=== PATIENT | female | born 1995 | race Two or more races ===

== ENCOUNTER → 2021-10-28 | Outpatient (CLI) | payer MEDICAID ==
--- NOTE | 2021-10-28 12:05 | REP ---
INDICATION: PRE EMPLOYMENT TB SCREENING COMPARISON: None. TECHNIQUE: PA/Lateral FINDINGS: Lungs: Clear, no infiltrate. Heart: Normal in size. Mediastinum: Mediastinal silhouette unremarkable. Pleural angles: Unremarkable.. Bones and soft tissues: Unremarkable. IMPRESSION: No acute pulmonary disease. <Electronically signed by Jurgen Sow > 10/28/21 1206
== END ==
LOC: M WUC 11:18
PROVIDERS: ATTEND Family Medicine Adult Medicine
DX: R76.11 Nonspecific reaction to tuberculin skin test without active tuberculosis (principal)

== ENCOUNTER → 2022-11-06 | Outpatient (REF) | payer MEDICAID, OTHER ==
[2022-11-06 18:01] LABS: BASO # 0.1 10^3/uL (0.0-0.2); BASO % 0.8 % (0.0-1.0); HEMOGLOBIN 14.2 g/dl (12.0-15.5); LYMPH % 19.5 % (24.0-44.0); MEAN CORPUSCULAR HGB CONC 33.8 g/dl (32.0-36.5); MEAN CORPUSCULAR VOLUME 91.7 fl (80.0-96.0); MONO # 0.6 10^3/uL (0.0-0.8); NEUTROPHILS # 7.6 10^3/uL (1.5-8.5); NEUTROPHILS % 73.5 % (36.0-66.0); PLATELET COUNT, AUTOMATED 384 10^3/uL (150-450); RED BLOOD COUNT 4.58 10^6/uL (4.00-5.40); WHITE BLOOD COUNT 10.3 10^3/uL (4.0-10.0)
[2022-11-06 18:11] LABS: ALBUMIN 3.9 G/DL (3.2-5.2); ALKALINE PHOSPHATASE 40 U/L (46-116); ALT/SGPT 13 U/L (7.0-40); AST/SGOT 19 U/L (<34); BILIRUBIN,TOTAL 0.4 MG/DL (0.3-1.2); BLOOD UREA NITROGEN 11 MG/DL (9-23); CALCIUM LEVEL 9.6 MG/DL (8.5-10.1); CARBON DIOXIDE LEVEL 22 MMOL/L (20-31); CHLORIDE LEVEL 105 MMOL/L (98-107); CHOLESTEROL LEVEL 151 MG/DL (<200); CREATININE FOR GFR 0.68 MG/DL (0.55-1.30); GLOMERULAR FILTRATION RATE > 60.0 (>60); GLUCOSE, FASTING 77 MG/DL (60-100); HDL CHOLESTEROL 65.5 MG/DL (>40); LDL CHOLESTEROL 73.3 MG/DL (<100); NON-HDL-C 86 MG/DL; SODIUM LEVEL 139 MMOL/L (136-145); TOTAL PROTEIN 7.4 G/DL (5.7-8.2); TRIGLYCERIDES LEVEL 61 MG/DL (<150)
[2022-11-06 18:15] LABS: THYROID STIMULATING HORMONE 1.314 uIU/ML (0.55-4.78); TOTAL 25(OH) VITAMIN D 34.9 NG/ML (20.0-100.0)
[2022-11-06 18:17] LABS: FREE T4 1.24 NG/DL (0.89-1.76)
[2022-11-07 08:04] LABS: HCG, SERUM QUANTITATIVE 16699.6 MIU/ML (<4.2)
== END ==
LOC: M LAB REF 17:25
PROVIDERS: ATTEND Nurse Practitioner Family
DX: Z13.228 Encounter for screening for other metabolic disorders (principal); N92.5 Other specified irregular menstruation

== ENCOUNTER 2022-11-07 21:34 | Emergency (ER) | payer MEDICAID ==
[~2022-11-07] VITALS: Ht 152.4 cm; Wt 45.5 kg
[2022-11-07 21:34] VITALS: BP 121/63
== END 2022-11-08 02:53 | disposition left against medical advice (07) ==
LOC: M ED 21:34
DX: Z53.21 Procedure and treatment not carried out due to patient leaving prior to being seen by health care provider (principal)

== ENCOUNTER → 2022-12-09 | Outpatient (REF) | payer OTHER, MEDICAID | LOC: M SFHCWAGY 10:02 | PROVIDERS: ATTEND Advanced Practice Midwife | DX: Z34.01 Encounter for supervision of normal first pregnancy, first trimester (principal) ==

== ENCOUNTER → 2022-12-24 | Outpatient (CLI) | payer MEDICAID, OTHER | LOC: M WHC 13:11 | PROVIDERS: ATTEND Advanced Practice Midwife | DX: Z34.01 Encounter for supervision of normal first pregnancy, first trimester (principal); Z3A.12 12 weeks gestation of pregnancy ==

== ENCOUNTER → 2023-01-07 | Outpatient (CLI) | payer OTHER ==
[2023-01-07 13:34] LABS: HEMATOCRIT 40.1 % (36.0-47.0); HEMOGLOBIN 13.9 g/dl (12.0-15.5); MEAN CORPUSCULAR HEMOGLOBIN 31.9 pg (27.0-33.0); MEAN CORPUSCULAR HGB CONC 34.7 g/dl (32.0-36.5); PLATELET COUNT, AUTOMATED 330 10^3/uL (150-450); RED BLOOD COUNT 4.36 10^6/uL (4.00-5.40)
[2023-01-07 16:06] LABS: GC DNA AMPLIFICATION NEGATIVE (NEGATIVE)
[2023-01-07 19:54] LABS: HIV 1&2 SCREEN CENTAUR NEGATIVE (NEGATIVE)
== END ==
LOC: M PLALAB 09:17
PROVIDERS: ATTEND Advanced Practice Midwife
DX: Z34.01 Encounter for supervision of normal first pregnancy, first trimester (principal)

== ENCOUNTER → 2023-02-10 | Outpatient (CLI) | payer OTHER | LOC: M WHC 14:22 | PROVIDERS: ATTEND Advanced Practice Midwife | DX: O32.1XX0 Maternal care for breech presentation, not applicable or unspecified (principal); Z36.89 Encounter for other specified antenatal screening; Z3A.19 19 weeks gestation of pregnancy ==

== ENCOUNTER → 2023-04-03 | Outpatient (CLI) | payer OTHER ==
[2023-04-03 15:03] LABS: HEMATOCRIT 36.4 % (36.0-47.0); HEMOGLOBIN 12.3 g/dl (12.0-15.5); MEAN CORPUSCULAR HEMOGLOBIN 32.5 pg (27.0-33.0); MEAN CORPUSCULAR HGB CONC 33.8 g/dl (32.0-36.5); PLATELET COUNT, AUTOMATED 303 10^3/uL (150-450); RED BLOOD COUNT 3.79 10^6/uL (4.00-5.40); WHITE BLOOD COUNT 16.6 10^3/uL (4.0-10.0)
[2023-04-03 16:55] LABS: GC DNA AMPLIFICATION NEGATIVE (NEGATIVE)
== END ==
LOC: M PLALAB 10:41
PROVIDERS: ATTEND Specialist
DX: Z34.02 Encounter for supervision of normal first pregnancy, second trimester (principal); Z36.89 Encounter for other specified antenatal screening; Z3A.00 Weeks of gestation of pregnancy not specified

== ENCOUNTER → 2023-06-08 | Outpatient (CLI) | payer OTHER | LOC: M WHC 09:44 | PROVIDERS: ATTEND Advanced Practice Midwife | DX: O26.849 Uterine size-date discrepancy, unspecified trimester (principal); Z3A.36 36 weeks gestation of pregnancy ==

== ENCOUNTER → 2023-10-05 | Outpatient (CLI) | payer OTHER | LOC: M SOG 15:59 | PROVIDERS: ATTEND Physician Assistant | DX: M79.644 Pain in right finger(s) (principal); Z53.9 Procedure and treatment not carried out, unspecified reason ==

== ENCOUNTER → 2023-10-06 | Outpatient (CLI) | payer OTHER | LOC: M SOG 07:54 | PROVIDERS: ATTEND Physician Assistant | DX: M79.644 Pain in right finger(s) (principal) ==